=== PATIENT | female | born 1985 | race Caucasian/White ===

== ENCOUNTER 2018-02-12 16:37 | Emergency (ER) | payer OTHER ==
[~2018-02-12] VITALS: Ht 170.2 cm; Wt 71.6 kg
[~2018-02-12 16:37] MED LIST: MTR600X PO; OXYC-57 PO
[2018-02-12 16:48] VITALS: TEMP 36.8; Ht 170.2 cm; Wt 71.6 kg
[2018-02-12] MEDS ORDERED: ONDANSETRON INJ 2 MG/ML 2 ML VIAL IV STA (18:34)
[2018-02-12] MEDS ORDERED: MoRPHine SULFATE 4 MG/ML 1 ML CARP\\VIAL IV STA ×2 (18:34→20:16)
[2018-02-12] MEDS ORDERED: SODIUM CHLORIDE 0.9% 1000ML 1,000 ML IV STA (18:34)
[2018-02-12 18:46] LABS: BASO % 0.2 %; BASO ABS # 0.02 K/uL (0-0.2); EOS % 1.3 %; EOS ABS # 0.12 K/uL (0-0.5); HEMATOCRIT 37.6 % (37-47); HEMOGLOBIN 12.8 g/dL (12.0-16.0); IG# 0.02 K/uL (0.00-0.02); LYMPH % 15.4 %; LYMPH ABS # 1.45 K/uL (1.2-3.4); MEAN CELL VOLUME 94.2 fL (80-100); MEAN CORPUSCULAR HEMOGLOBIN 32.1 pg (25-34); MEAN PLATELET VOLUME 9.6 fL (7.4-10.4); MONO % 5.2 %; MONO ABS # 0.49 K/uL (0.11-0.59); NEUT % 77.7 %; NEUT ABS # 7.31 K/uL (1.4-6.5); PLATELET COUNT 334 K/uL (130-400); RED CELL DISTRIBUTION WIDTH CV 13.1 % (11.5-14.5); RED CELL DISTRIBUTION WIDTH SD 44.9 fL (36.4-46.3); WHITE BLOOD COUNT 9.41 K/uL (4.8-10.8)
[2018-02-12] MEDS ORDERED: OPTIRAY 320 IV PRN (19:00)
[2018-02-12 19:07] LABS: ALBUMIN 4.2 gm/dl (3.4-5.0); CALCIUM 8.8 mg/dl (8.5-10.1); CREATININE 0.83 mg/dl (0.60-1.20); POTASSIUM 4.1 mmol/L (3.5-5.1); TOTAL PROTEIN 7.7 gm/dl (6.4-8.2)
[2018-02-12] MEDS ORDERED: DOCU100C PO (19:32)
[2018-02-12] MEDS ORDERED: MULT-240 PO (19:32)
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
--- NOTE | 2018-02-12 20:47 | DIAGNOSTIC IMAGING REPORT ---
CT OF THE ABDOMEN AND PELVIS WITH CONTRAST CLINICAL HISTORY: Severe left lower quadrant pain. Recent surgery. COMPARISON STUDY: Pelvic ultrasound February 03, 2018. TECHNIQUE: Following IV administration of 114 mL of Optiray-320, axial images of the abdomen and pelvis were obtained from the lung bases to the proximal femurs. Images were reviewed in the axial, sagittal, and coronal planes. IV contrast was administered without complication. A dose lowering technique was utilized adhering to the principles of ALARA. CT DOSE: 419.02 mGy.cm FINDINGS: Lung bases are clear. Note is made of a 4.4 cm segment 7 hepatic cyst. There is no biliary or pancreatic ductal dilatation. The spleen, adrenal glands, left kidney and pancreas are normal. An 8 mm hypodense right renal lesion is too small to characterize. There is no evidence for a bowel obstruction. The appendix is normal. Caliber and wall thickness of small and large bowel are normal. There is trace fluid within the pelvis, markedly diminished since exam of February 03, 2018. A few locules of gas within the bladder noted. Note is made of a 2.3 cm left ovarian lesion. The ovaries are not enlarged. No suspicious osseous lesion is present. IMPRESSION: 1. No acute process within the abdomen or pelvis. 2. 2.3 cm left ovarian lesion which may reflect a corpus luteal/hemorrhagic cyst. 3. Trace fluid within the pelvis, markedly diminished since ultrasound February 03, 2018. 4. Trace gas within the bladder which could be correlated with history of recent instrumentation. Electronically signed by: Guilherme Yen M.D. 02/12/2018 8:45 PM Dictated Date/Time: 02/12/2018 8:39 PM
[2018-02-12] MEDS ORDERED: KETOROLAC TROMETHAMINE 30 MG/ML VIAL IV STA (21:20)
[2018-02-12] MEDS ORDERED: OXYC-90 PO (21:48)
[2018-02-12 22:00] VITALS: BP 137/79; PULSE 65; O2SAT 100
[2018-02-12] MEDS ORDERED: OXYCODONE IR HOME PACK PO ONE (22:00)
== END 2018-02-12 22:05 | disposition home or self-care (01) ==
LOC: C.EDB 16:37 → C.EDC 22:05
DX: N83.202 Unspecified ovarian cyst, left side (principal); Z11.3 Encounter for screening for infections with a predominantly sexual mode of transmission; F17.200 Nicotine dependence, unspecified, uncomplicated; Z87.42 Personal history of other diseases of the female genital tract; Z98.890 Other specified postprocedural states

== ENCOUNTER → 2018-02-18 | Outpatient (CLI) | payer OTHER ==
[~2018-02-18] MED LIST changes: +DOCU100C PO; -MTR600X PO; +MULT-240 PO; -OXYC-57 PO; +OXYC-90 PO
[2018-02-18 14:35] LABS: BASO % 0.1 %; BASO ABS # 0.01 K/uL (0-0.2); EOS % 0.8 %; EOS ABS # 0.07 K/uL (0-0.5); HEMATOCRIT 39.7 % (37-47); HEMOGLOBIN 13.6 g/dL (12.0-16.0); IG# 0.03 K/uL (0.00-0.02); LYMPH % 19.1 %; LYMPH ABS # 1.69 K/uL (1.2-3.4); MEAN CELL VOLUME 93.6 fL (80-100); MEAN CORPUSCULAR HEMOGLOBIN 32.1 pg (25-34); MEAN CORPUSCULAR HGB CONC 34.3 g/dl (32-36); MEAN PLATELET VOLUME 9.9 fL (7.4-10.4); MONO % 7.5 %; MONO ABS # 0.66 K/uL (0.11-0.59); NEUT % 72.2 %; NEUT ABS # 6.39 K/uL (1.4-6.5); PLATELET COUNT 360 K/uL (130-400); RED CELL DISTRIBUTION WIDTH CV 13.2 % (11.5-14.5); RED CELL DISTRIBUTION WIDTH SD 45.3 fL (36.4-46.3); WHITE BLOOD COUNT 8.85 K/uL (4.8-10.8)
[2018-02-18 15:54] LABS: HEP C IGG 13 YRS+OLDER_RFLX NEG (NEG)
== END | disposition home or self-care (01) ==
LOC: C.LAB1850 13:11
PROVIDERS: ATTEND Obstetrics & Gynecology
DX: Z11.3 Encounter for screening for infections with a predominantly sexual mode of transmission (principal); N83.209 Unspecified ovarian cyst, unspecified side

== ENCOUNTER → 2018-03-03 | Outpatient (CLI) | payer OTHER ==
--- NOTE | 2018-03-03 12:33 | DIAGNOSTIC IMAGING REPORT ---
LEFT HUMERUS 2 VIEWS HISTORY: M79.602 Pain in anterior left upper extremity COMPARISON: None. FINDINGS: There is no fracture or dislocation. Soft tissues are unremarkable. No radiopaque foreign bodies. IMPRESSION: Unremarkable left humerus. Electronically signed by: Cisco Cuellar M.D. 03/03/2018 12:31 PM Dictated Date/Time: 03/03/2018 12:29 PM
== END | disposition home or self-care (01) ==
LOC: C.RAD 11:56
PROVIDERS: ATTEND Nurse Practitioner
DX: M79.602 Pain in left arm (principal)

== ENCOUNTER → 2018-03-12 | Outpatient (CLI) | payer OTHER | END | disposition home or self-care (01) | LOC: C.LABBFT 13:01 | PROVIDERS: ATTEND Physician Assistant Medical | DX: R11.2 Nausea with vomiting, unspecified (principal) ==